=== PATIENT | female | born 1990 | race African-American/Black ===

== ENCOUNTER 2019-04-21 18:18 | Observation (INO) ==
[2019-04-21] MEDS ORDERED: KETOROLAC 30 MG/1 ML VIAL IV STA (19:45)
[2019-04-21] MEDS ORDERED: ONDANSETRON 4 MG/2 ML VIAL IV STA (19:45)
[2019-04-21] MEDS ORDERED: PANTOPRAZOLE 40 MG VIAL IV STA (19:45)
[2019-04-21] MEDS ORDERED: SODIUM CHLORIDE 0.9% 500 ML IV STA (19:45)
[2019-04-21 20:46] LABS: Basophils # 0.1 10*3/uL (0.0-0.2); Basophils % 0.5 % (0.0-0.8); Eosinophils % 0.2 % (0.00-10.9); Hemoglobin 14.6 GM/DL (12.0-16.0); Immature Granulocytes % 0.4 %; Immature Granulocytes Absolute 0.05 #; Lymphocytes # 1.2 10*3/uL (1.4-4.0); Lymphocytes % 10.3 % (21.3-54.2); Mean Corpuscular HGB Conc 32.4 GM/DL (32-36); Mean Corpuscular Volume 84.4 FL (87-102); Mean Platelet Volume 10.6 FL (9.6-12.0); Monocytes % 6.5 % (1.7-12.7); Neutrophils % 82.1 % (38.7-73.9); Platelet Count 370 T/CUMM (130-400); Red Blood Count 5.33 MC/CUMM (3.8-5.5); Red Cell Distribution Width 16.8 % (9.3-17.3); White Blood Count 11.3 T/CUMM (4-12)
[2019-04-21 21:10] LABS: Apearance,Urine CLOUDY (Clear); Bilirubin,Urine Negative (Negative); Blood, Urine Small mg/dL (Negative); Glucose,Urine (UA) Negative (Negative); Hyaline Casts,Urine 17 /LPF (0-3); Ketones,Urine 80 mg/dL (Negative); Mucus,Urine Many /LPF (Occasional); Nitrite,Urine Negative (Negative); Protein,Urine 100 MG/DL; RBC,Urine 3 /HPF (0-4); Squamous Epithelial Cell,Urine Few /HPF (0-10); Urine Color Yellow (Yellow); Urine Specific Gravity 1.026 (1.001-1.035); WBC,Urine 20 /HPF (0-6)
[2019-04-21 21:14] LABS: Albumin 3.4 G/DL (3.4-5.0); Bilirubin,Total 1.1 MG/DL (0.2-1.0); Calcium 9.3 MG/DL (8.5-10.1); Osmolality,Calculated 269.7 MOS/KG (273-304); Total Protein 7.3 G/DL (6.4-8.3)
[2019-04-21] MEDS ORDERED: cefTRIAXone 1,000 MG in SODIUM CHLORIDE 0.9% 100 ML IV STA (21:32)
[2019-04-22] MEDS ORDERED: HYDROmorphone 2 MG/1 ML VIAL IV PRN (00:34)
[2019-04-22] MEDS ORDERED: ACETAMINOPHEN 325 MG TABLET PO PRN (00:34)
[2019-04-22] MEDS ORDERED: LEVOFLOXACIN INJ 750 MG in PREMIX 1 EACH IV SCH (01:00)
[2019-04-22] MEDS: SODIUM CHLORIDE 0.9% 1,000 ML IV SCH ×2 (01:15→15:36)
[2019-04-22 06:35] LABS: Basophils % 0.3 % (0.0-0.8); Eosinophils # 0.1 10*3/uL (0.0-0.87); Eosinophils % 0.8 % (0.00-10.9); Hematocrit 39.4 VOL% (35.7-47.0); Hemoglobin 13.1 GM/DL (12.0-16.0); Immature Granulocytes % 0.5 %; Immature Granulocytes Absolute 0.05 #; Lymphocytes # 1.4 10*3/uL (1.4-4.0); Lymphocytes % 14.2 % (21.3-54.2); Mean Corpuscular HGB Conc 33.2 GM/DL (32-36); Mean Corpuscular Volume 83.5 FL (87-102); Mean Platelet Volume 10.8 FL (9.6-12.0); Monocytes % 9.8 % (1.7-12.7); Neutrophils % 74.4 % (38.7-73.9); Platelet Count 307 T/CUMM (130-400); Red Blood Count 4.72 MC/CUMM (3.8-5.5); Red Cell Distribution Width 16.7 % (9.3-17.3); White Blood Count 9.8 T/CUMM (4-12)
[2019-04-22] MEDS: PANTOPRAZOLE 40 MG VIAL IV SCH (09:35)
[2019-04-22] MEDS: ONDANSETRON 4 MG/2 ML VIAL IV PRN ×2 (09:35→18:02)
[2019-04-22] MEDS: ENOXAPARIN 40 MG/0.4 ML SYRINGE SUBCUT SCH (09:35)
[2019-04-22] MEDS ORDERED: INDOCYANINE GREEN 25 MG VIAL IV ONE (15:06)
[2019-04-22] MEDS ORDERED: cefOXitin 2,000 MG in SYRINGE 1 EACH IV ONE ×2 (15:06→16:30)
[2019-04-22] MEDS ORDERED: TISSUE ADHESIVE 1 EACH APPLICATOR TOP ONE (16:59)
[2019-04-22] MEDS ORDERED: SEVOFLURANE 1 UNIT/15 MINUTE INH ONE (17:48)
[2019-04-22] MEDS ORDERED: LIDOCAINE 2% 5 ML VIAL ONE (17:49)
[2019-04-22] MEDS ORDERED: propofoL 200 MG/20 ML VIAL IV ONE (17:49)
[2019-04-22] MEDS ORDERED: SCOPOLAMINE 1.5 MG PATCH TRANSDERM ONE (17:50)
[2019-04-22] MEDS ORDERED: MIDAZOLAM 2 MG/2 ML VIAL ONE (17:50)
[2019-04-22] MEDS ORDERED: fentaNYL 100 MCG/2 ML VIAL ONE (17:50)
[2019-04-22] MEDS ORDERED: DEXAMETHASONE 4 MG/1 ML VIAL ONE ×2 (17:50→17:51)
[2019-04-22] MEDS ORDERED: GLYCOPYRROLATE 0.4 MG/2 ML VIAL ONE (17:51)
[2019-04-22] MEDS ORDERED: ONDANSETRON 4 MG/2 ML VIAL ONE (17:51)
[2019-04-22] MEDS ORDERED: KETOROLAC 30 MG/1 ML VIAL ONE (17:51)
[2019-04-22] MEDS ORDERED: PHENYLEPHRINE 1 MG/10 ML SYRINGE IV ONE (17:51)
[2019-04-22] MEDS ORDERED: ROCURONIUM 100 MG/10 ML VIAL IV ONE (17:52)
[2019-04-22] MEDS ORDERED: NEOSTIGMINE 10 MG/10 ML VIAL ONE (17:52)
[2019-04-22] MEDS ORDERED: ONDANSETRON 4 MG/2 ML VIAL IV PRN (17:57)
[2019-04-22] MEDS: HYDROmorphone 2 MG/1 ML VIAL IV PRN ×2 (18:00→18:05)
[2019-04-23] MEDS: ONDANSETRON 4 MG/2 ML VIAL IV PRN (00:28)
[2019-04-23] MEDS: SODIUM CHLORIDE 0.9% 1,000 ML IV SCH ×2 (00:28→05:51)
[2019-04-23] MEDS: PANTOPRAZOLE 40 MG VIAL IV SCH (08:16)
[2019-04-23] MEDS: ENOXAPARIN 40 MG/0.4 ML SYRINGE SUBCUT SCH (08:16)
[2019-04-23 09:34] LABS: Basophils % 0.3 % (0.0-0.8); Hematocrit 38.2 VOL% (35.7-47.0); Hemoglobin 12.4 GM/DL (12.0-16.0); Immature Granulocytes % 0.6 %; Immature Granulocytes Absolute 0.09 #; Lymphocytes # 0.8 10*3/uL (1.4-4.0); Lymphocytes % 5.4 % (21.3-54.2); Mean Corpuscular HGB Conc 32.5 GM/DL (32-36); Mean Corpuscular Volume 85.7 FL (87-102); Mean Platelet Volume 10.9 FL (9.6-12.0); Monocytes % 5.5 % (1.7-12.7); Neutrophils % 88.2 % (38.7-73.9); Platelet Count 334 T/CUMM (130-400); Red Blood Count 4.46 MC/CUMM (3.8-5.5); Red Cell Distribution Width 16.9 % (9.3-17.3); White Blood Count 14.6 T/CUMM (4-12)
[2019-04-23 10:01] LABS: Alanine Aminotransferase 19 U/L (13-56); Albumin 2.8 G/DL (3.4-5.0); Alkaline Phosphatase 60 U/L (45-117); Aspartate Amino Transferase 15 U/L (0-37); Blood Urea Nitrogen < 1 MG/DL (7-18); Calcium 8.5 MG/DL (8.5-10.1); Estimated Glom Filtration Rate 189 ML/MIN; Glucose 100 MG/DL (74-106); Osmolality,Calculated 282.2 MOS/KG (273-304); Total Protein 6.3 G/DL (6.4-8.3)
[2019-04-23 13:12] VITALS: BP 112/75
== END 2019-04-23 13:28 | disposition home or self-care (01) ==
LOC: N.EDINP 18:18 → N.ED 18:18 → N.EDINP 23:12 → N.2W 04-22 01:17 → N.3E 04-22 14:14
PROVIDERS: ADMIT Surgery; ATTEND Surgery